=== PATIENT | male | born 2000 | race Two or more races ===

== ENCOUNTER 2019-11-08 14:36 | Emergency (ER) | payer SELFPAY ==
[2019-11-08 15:13] VITALS: BP 138/61
--- NOTE | 2019-11-08 15:57 | PHYS DOC ---
Past Medical History Past Medical History: No Pertinent History Past Surgical History: No Surgical History Alcohol Use: None Drug Use: None Adult General Chief Complaint Chief Complaint: COUGH HPI HPI Patient is a 18 year old male who presents with fever, loss of appetite, body aches, nausea, vomiting, sore throat, runny nose, cough that started 1 week ago. Patient has been able to drink water at home. Patient has been using Tylenol for fever control. Patient also states he is having R ear pain. Patient states symptoms have been improving. Complete ROS were reviewed and found to be within normal limits, except as documented in the HPI Allergies Allergies Allergies Coded Allergies Type Severity Reaction Last Updated Verified No Known Drug Allergies 10/19/16 No Physical Exam Physical Exam Constitutional: Well developed, well nourished, no acute distress, non-toxic appearance. [] HENT: Normocephalic, atraumatic, bilateral external ears normal, Right ear canal is red and erythematous, oropharynx moist, no oral exudates, nose turbinates are inflamed. Eyes: PERRLA, EOMI, conjunctiva normal, no discharge. [] Neck: Normal range of motion, no tenderness, supple, no stridor. [] Cardiovascular:Heart rate regular rhythm, no murmur [] Lungs & Thorax: Bilateral breath sounds clear to auscultation [] Abdomen: Bowel sounds normal, soft, no tenderness, no masses, no pulsatile masses. [] Skin: Warm, dry, no erythema, no rash. [] Neurologic: Alert and oriented X 3, normal motor function, normal sensory function, no focal deficits noted. [] Psychologic: Affect normal, judgement normal, mood normal. [] Current Patient Data Vital Signs Vital Signs Date Time Temp Pulse Resp B/P (MAP) Pulse Ox O2 Delivery O2 Flow Rate FiO2 11/08/19 15:13 98.3 60 24 138/61 (86) 97 Room Air 98.3 EKG EKG [] Radiology/Procedures Radiology/Procedures [] Course & Med Decision Making Course & Med Decision Making Pertinent Labs and Imaging studies reviewed. (See chart for details) The patient appears to have had the Flu clinically. He appears to have gotten over it. Discussed with patient the importance of drinking plenty of fluids. I also discussed the importance of rest. It was discussed with the patient that she is contagious and to stay away from others until it has been a week since the start of her symptoms. Discussed with the patient that she can take Zyrtec per label instructions for runny nose. Also discussed the proper control of fever by rotating Tylenol and Ibuprofen at home. Patient also has otitis externa. A medical screening exam was performed on this patient and the patient does not appear to be having a medical emergency. His symptoms are not of sufficient severity and within reasonable medical probability it is unlikely the absence of immediate medical attention would result in placing the health of the individual (or, with respect to a woman, the health of the woman or her unborn child) in serious jeopardy, serious impairment to bodily functions, or serious dysfunction of any bodily organ or part. If , the patient is not in labor. Dragon Disclaimer Dragon Disclaimer This electronic medical record was generated, in whole or in part, using a voice recognition dictation system. Departure Departure Impression: Primary Impression: Viral syndrome Additional Impressions: Otitis externa Encounter for medical screening examination Disposition: HOME, SELF-CARE Condition: STABLE Referrals: NO PCP (PCP) Patient Instructions: Otitis Externa, Viral Syndrome Additional Instructions: Thank you for visiting [facility]. We appreciate you trusting us with your care. If any additional problems come up don't hesitate to return to visit us. Please follow up with your primary care provider so they can plan additional care if needed and know about the problem that you had. If symptoms worsen come back to the Emergency Department. Any concerning symptoms that start such as chest pain, shortness of air, weakness or numbness on one side of the body, running high fevers or any other concerning symptoms return to the ER. Please fill your medications at any pharmacy and follow the prescription instructions. Please drink plenty of fluids. If unable to keep fluids down please return to ER. Please get Tylenol and Ibuprofen over the counter. Give each medication every 6 hours as directed by the medication labels. In order to utilize the peak of the medications stagger the medications to where the child is getting one of the medications every 3 hours. For example if you give Ibuprofen at 3 PM, you then give Tylenol at 6 PM and Ibuprofen again at 9 PM, and then Tylenol at midnight. Please get Zyrtec over the counter and take per label instructions for runny nose. Problem Qualifiers Additional Impressions: Otitis externa Otitis externa type: unspecified type Chronicity: acute Laterality: right Qualified Codes: H60.501 - Unspecified acute noninfective otitis externa, right ear ANITHA TERRAZAS APRN Nov 08, 2019 15:57
== END 2019-11-08 16:00 | disposition home or self-care (01) ==
LOC: ER 14:36
DX: B34.9 Viral infection, unspecified (principal); H60.501 Unspecified acute noninfective otitis externa, right ear; R09.89 Other specified symptoms and signs involving the circulatory and respiratory systems; R05 Cough; R63.0 Anorexia; R50.9 Fever, unspecified; R52 Pain, unspecified
CPT/HCPCS: 99281